=== PATIENT | female | born 1995 | race Two or more races ===

== ENCOUNTER 2020-05-05 11:25 | Emergency (ER) | payer MEDICAID ==
[~2020-05-05] VITALS: Ht 160 cm; Wt 54.4 kg
[2020-05-05 11:30] VITALS: BP 118/40
[2020-05-05 12:45] LABS: Basophils # (auto) 0 10 ^3/uL (0-0.2); Basophils % (auto) 0.3 % (0.0-2.0); Eosinophils # (auto) 0.1 10 ^3/uL (0-0.8); Eosinophils % (auto) 0.8 % (0.0-7.0); Hematocrit 33.8 % (36.0-46.0); Lymphocytes # (auto) 2.2 10 ^3/uL (0.4-5.4); Lymphocytes % (auto) 27.7 % (10.0-50.0); Mean Corpuscular Hemoglobin 30.2 pg (28.0-32.0); Mean Corpuscular Hgb Conc. 32.5 g/dL (32.0-36.0); Monocytes # (auto) 0.5 10 ^3/uL (0-1.3); Monocytes % (auto) 6.7 % (0.0-12.0); Neutrophils # (auto) 5.1 10 ^3/uL (1.6-8.6); Neutrophils % (auto) 64.5 % (37.0-80.0); Nucleated Red Blood Cells % 0.1 %; Platelet Count (auto) 264 10^3/uL (140-450); Red Blood Cells 3.64 10^6/uL (4.0-5.20); Red Cell Distribution Width 13.2 % (11.8-14.3); White Blood Cell 7.9 10^3/uL (4.4-10.8)
[2020-05-05 13:04] LABS: Albumin 3.1 g/dL (3.4-5.0); BUN/Creatinine Ratio 10.2; Calcium 8.9 mg/dL (8.5-10.1); Potassium 3.2 mmol/L (3.5-5.1)
[2020-05-05 13:08] LABS: Bilirubin, Total 0.2 mg/dL (0.2-1.0); Total Protein 6.9 g/dL (6.4-8.2)
[2020-05-05 15:03] LABS: Amylase 93 U/L (25-115); Lipase 200 U/L (73-393)
== END 2020-05-05 15:29 | disposition left against medical advice (07) ==
LOC: ER 11:25
DX: O99.612 Diseases of the digestive system complicating pregnancy, second trimester (principal); O26.892 Other specified pregnancy related conditions, second trimester; K80.20 Calculus of gallbladder without cholecystitis without obstruction; R11.2 Nausea with vomiting, unspecified; E87.6 Hypokalemia; Z3A.22 22 weeks gestation of pregnancy
CPT/HCPCS: 36415; 76705; 76805; 80053; 82150; 83690; 84702; 85025